=== PATIENT | female | born 1950 | race Caucasian/White ===

== ENCOUNTER 2017-11-20 10:24 | Emergency (ER) | payer OTHER ==
--- NOTE | 2017-11-20 10:38 | CPEKG ---
Heart Rate: 202 RR Interval: 297 QRSD Interval: 86 QT Interval: 256 QTC Interval: 470 P [place]: 0 QRS [place]: 18 T Wave [place]: 179 EKG Severity - ABNORMAL ECG - EKG Impression: SUPRAVENTRICULAR TACHYCARDIA EKG Impression: CONSIDER ANTERIOR INFARCT EKG Impression: REPOLARIZATION ABNORMALITY, PROB RATE RELATED Electronically Signed By: Neela Ponce 21-Nov-2017 16:59:57
[2017-11-20] MEDS ORDERED: ADENOSINE 6 MG/2 ML VIAL ONE (10:39)
--- NOTE | 2017-11-20 10:39 | EDPHY ---
HPI/HX/ROS/PE/MDM Narrative: CHIEF COMPLAINT: "A little SVT episode" HISTORY OF PRESENT ILLNESS: This patient is a 67 y/o female with history of SVT presenting with tachycardia. She has had several episodes of SVT in the past and is s/p ablation in 2006. She follows up with cardiology at [place] regularly, and does not take any medications for her SVT. Her telegrapher agent instructed her to present to the emergency department when the next episode occurred. Her symptoms today began about 9:25am. Usually she vomits and has diarrhea with associated diaphoresis. Her symptoms generally spontaneously resolve. Today, symptoms persisted and she tried a Valsalva maneuver at home without success. She has been converted with adenosine in the past. The patient denies chest pain , dizziness, or lightheadedness. No shortness of breath with exertion. No fever , chills, chest pain, shortness of breath, urinary complaints, headache, lightheadedness. REVIEW OF SYSTEMS: Aside from elements discussed in the HPI, a comprehensive 10-point review of systems was reviewed and is negative. PAST MEDICAL HISTORY: Hypothyroidism (Levothyroxine) SOCIAL HISTORY: Employed. Single. Live in [place]. VITAL SIGNS: Reviewed by me. GENERAL: Well-developed, well-nourished, resting comfortably in no respiratory distress. HEENT: Atraumatic. Eyes: No icterus, no injection. Mouth: moist mucous membranes. No erythema or lesions. Neck: supple with no adenopathy. LUNGS: Clear to auscultation bilaterally, no wheezes, rhonchi or rales. CARDIAC: Extreme tachycardia, regular. Monitor demonstrates rate of greater than 200, narrow complex. ABDOMEN: Soft, nontender, nondistended, bowel sounds normal. BACK: No CVA tenderness. EXTREMITIES: No trauma. No edema. Range of motion is normal throughout. NEURO: Alert and oriented, grossly nonfocal. SKIN: Warm and dry, no rash. PSYCHIATRIC: Normal mentation, no agitation. Portions of this note were transcribed by a medical scheduler. I personally performed a history, physical exam, medical decision making, and confirmed accuracy of information the transcribed note. ED Course: 10:36 67 y/o female presents with supraventricular tachycardia. Heart rate 200 , regular and narrow on monitor. Plan for EKG. 12-LEAD EKG: Please see the full report in [facility]. My interpretation: SVT. 10:39 Performed Valsalva maneuver. This did not relieve the patient's tachycardia. 10:41 Plan to administer 6mg IV adenosine. 10:43 Heart rate 105, sinus rhythm. The patient feels well. Plan to continue to observe. Plan for labs including CBC, chemistries, troponin, TSH. 12:04 Patient feels well and remains in sinus rhythm, rate 88. Troponin negative. Plan to discharge home in good condition to follow up with her telegrapher agent. Return precautions discussed. She is comfortable with this plan. MDM: Differential diagnosis for the patient's sensation of palpitations and narrow complex tachycardia was considered including but not limited to various causes of sinus tachycardia, SVT, atrial flutter and atrial fibrillation. - Data Points Laboratory Results: Laboratory Results 11/20/17 10:35 11/20/17 10:35 Medications Given: Discontinued Medications Adenosine (Adenosine) 6 mg IVP EDNOW ONE Stop: 11/20/17 10:49 Last Admin: 11/20/17 10:49 Dose: 6 mg General Time Seen by Provider: 11/20/17 10:30 Initial Vital Signs: Initial Vital Signs Temperature (C) 36.4 C 11/20/17 10:26 Heart Rate 208 H 11/20/17 10:26 Respiratory Rate 20 11/20/17 10:26 Blood Pressure 165/112 H 11/20/17 10:26 O2 Sat (%) 98 11/20/17 10:26 O2 Delivery Mode Room Air Allergies/Adverse Reactions: Qxolkeh-Eld-Gws Reductase Inhibitor Allergy (Verified 11/20/17 10:25) Home Medications: Medication Instructions Recorded Levothyroxine 11/20/17 Departure - Departure Disposition: Home, Routine, Self-Care Clinical Impression: Supraventricular tachycardia Condition: Good Instructions: Supraventricular Tachycardia (ED) Additional Instructions: 1. Follow up with your telegrapher agent within one week for further evaluation. 2. Return to the emergency department for recurrence of symptoms, chest pain, shortness of breath, fever, or other worsening of condition or further concerns. Referrals: [facility] [Provider Group] - As per Instructions Report Scribed for: Nimisha Delgado Report Scribed by: Glenny Mcqueen Date of Report: 11/20/17 Time of Report: 12:35
[2017-11-20] MEDS ORDERED: ADENOSINE 6 MG/2 ML VIAL IVP ONE (10:48)
[2017-11-20 11:24] LABS: PLATELET COUNT 269 10^3/uL (150-400)
[2017-11-20 12:03] VITALS: BP 133/89
== END 2017-11-20 12:16 | disposition home or self-care (01) ==
DX: I47.1 Supraventricular tachycardia (principal)
CPT/HCPCS: 93005; 96374; 99284; J0153